=== PATIENT | female | born 1945 | race Caucasian/White ===

== ENCOUNTER 2022-08-16 18:07 | Emergency (ER) | payer MEDICARE, SELFPAY ==
[2022-08-16 18:18] VITALS: BP 145/74; PULSE 103; RESP 18; TEMP 37.8; O2SAT 96
[2022-08-16 19:24] LABS: Basophils Absolute Auto 0.1 K/mm3 (0.0-0.1); Basophils Percent Auto 0.5 % (0.2-1.2); Eosinophils Absolute Auto 0.1 K/mm3 (0-0.3); Eosinophils Percent Auto 0.8 % (0-4.4); Hematocrit 44.7 % (37.0-47.0); Hemoglobin 15.6 g/dL (12.0-15.0); Immature Granulocyte Absolute 0.04 K/mm3 (0.00-0.031); Immature Granulocyte Percent A 0.4 % (0-0.5); Lymphocytes Absolute Auto 1.81 K/mm3 (0.9-3.2); Lymphocytes Percent Auto 16.1 % (18.3-44.2); Mean Corpuscular HGB Conc 34.9 g/dl (32-36); Mean Corpuscular Hemoglobin 30.9 pg (26-34); Mean Corpuscular Volume 88.5 fl (80-100); Mean Platelet Volume 10.7 fl (7.4-10.4); Monocytes Percent Auto 9.1 % (2.6-8.5); Neutrophils Absolute Auto 8.2 K/mm3 (1.3-6.7); Neutrophils Percent Auto 73.1 % (45.5-73.1); Platelet Count Result 174 k/mm3 (150-375); Red Blood Count 5.05 M/mm3 (4.2-5.4); Red Cell Distribution Width 12.5 % (11.5-14.5); White Blood Count 11.3 K/mm3 (4.5-10.0)
[2022-08-16 19:35] LABS: Lactic Acid Reflex 1.5 mmol/L (0.7-2.0)
[2022-08-16 19:36] LABS: Anion Gap 13 mmol/L (8-16); Blood Urea Nitrogen 14 mg/dL (7-17); Carbon Dioxide 24 mmol/L (22-30); Chloride 99 mmol/L (98-107); Estimated CRCL calculation 42 ml/min; Estimated Glomerular Filt Rate > 60; Glucose 221 mg/dL (65-110); Potassium 3.1 mmol/L (3.4-5.0); Sodium 136 mmol/L (137-145)
--- NOTE | 2022-08-16 19:45 | ED.GENADULT ---
HPI - General Adult General Chief complaint: Urogenital-Female Stated complaint: uti symptoms, urgency Time Seen by Provider: 08/16/22 18:33 History of Present Illness HPI narrative: 77-year-old female with a history of presents to the emergency room for evaluation of urinary retention and generalized lower extremity weakness. Patient states when she gets UTIs she begins experiencing generalized lower extremity weakness. Patient also complaining of a fever. Reports body aches and headache. Denies any shortness of breath, difficulty breathing or cough. Denies any abdominal pain. Denies nausea vomiting, diarrhea or constipation Related Data Allergies Allergy/AdvReac Type Severity Reaction Status Date / Time cephalexin [From Keflex] Allergy Rash Verified 08/16/22 19:03 Penicillins Allergy Rash Verified 08/16/22 19:03 trimethoprim Allergy Rash Verified 08/16/22 19:03 Review of Systems Review of Systems: CONSTITUTIONAL: Denies fever, chills, or sweats. EYES: Denies visual changes, redness, or discharge. ENT: Denies rhinorrhea, congestion, sore throat, or otalgia. CARDIOVASCULAR: Denies chest pain, palpitations, or edema. RESPIRATORY: Denies cough or dyspnea. GASTROINTESTINAL: Denies abdominal pain, nausea, vomiting, or diarrhea. GENITOURINARY: Reports dysuria and urinary retention SKIN: Denies rash or itching. MUSCULOSKELETAL: Denies back pain, joint pain, or myalgia. NEUROLOGIC: Denies headache, numbness, dizziness, or weakness. PSYCHIATRIC: Denies anxiety or depression. Exam Narrative: GENERAL: Well-appearing, well-nourished, no physical limitations, and in no acute distress. HEAD: Normocephalic, atraumatic. EYES: Conjunctivae normal, PERRLA and EOMI. CHEST: Clear to auscultation. No respiratory distress. No wheezes rales or rhonchi. HEART: Regular rate and rhythm. No murmur heard. Normal peripheral pulses. ABDOMEN: Soft, suprapubic tenderness, nondistended, normal active bowel sounds. BACK: No CVA tenderness EXTREMITIES: Normal range of motion. No edema. No clubbing or cyanosis SKIN: Warm, dry, no rash. No noted wounds NEURO: No focal deficits. Alert and oriented x3. MAEW. CN's II-XI intact bilaterally, normal gait. PSYCH: Cooperative. Normal mood and affect. Course Vital Signs Vital signs: Vital Signs Temperature 37.8 C H 08/16/22 18:18 Pulse Rate 103 H 08/16/22 18:18 Respiratory Rate 18 08/16/22 18:18 Blood Pressure 145/74 H 08/16/22 18:18 Pulse Oximetry 96 08/16/22 18:18 Oxygen Delivery Room Air 08/16/22 18:18 Temperature 37.8 C H 08/16/22 18:18 Pulse Rate 103 H 08/16/22 18:18 Respiratory Rate 18 08/16/22 18:18 Blood Pressure 145/74 H 08/16/22 18:18 Pulse Oximetry 96 08/16/22 18:18 Oxygen Delivery Room Air 08/16/22 18:18 Medical Decision Making Vital Signs Vital Signs: Vital Signs Temperature 37.8 C H 08/16/22 18:18 Pulse Rate 103 H 08/16/22 18:18 Respiratory Rate 18 08/16/22 18:18 Blood Pressure 145/74 H 08/16/22 18:18 Pulse Oximetry 96 08/16/22 18:18 Oxygen Delivery Room Air 08/16/22 18:18 Temperature 37.8 C H 08/16/22 18:18 Pulse Rate 103 H 08/16/22 18:18 Respiratory Rate 18 08/16/22 18:18 Blood Pressure 145/74 H 08/16/22 18:18 Pulse Oximetry 96 08/16/22 18:18 Oxygen Delivery Room Air 08/16/22 18:18 Lab Data Result diagrams: 08/16/22 19:18 08/16/22 19:18 Labs: Lab Results 08/16/22 08/16/22 08/16/22 Range/Units 19:18 19:18 19:18 WBC 11.3 H (4.5-10.0) K/mm3 RBC 5.05 (4.2-5.4) M/mm3 Hgb 15.6 H (12.0-15.0) g/dL Hct 44.7 (37.0-47.0) % MCV 88.5 (80-100) fl MCH 30.9 (26-34) pg MCHC 34.9 (32-36) g/dl RDW 12.5 (11.5-14.5) % Plt Count 174 (150-375) k/mm3 MPV 10.7 H (7.4-10.4) fl Immature Gran % (Auto) 0.4 (0-0.5) % Neut % (Auto) 73.1 (45.5-73.1) % Lymph % (Auto) 16.1 L (18.3-44.2) % Glynn % (Auto) 9.1 H (2.6-8.5) %
[2022-08-16 20:08] LABS: Appearance Urine Clear (Clear); Bilirubin Urine Negative (Negative); Blood Urine Negative (Negative); Color Urine Yellow (Yellow); Glucose Urine UA 2+ mg/dL (Negative); Ketones Urine 2+ mg/dL (Negative); Leukocyte Esterase Ur 1+ LEU/UL (Negative); Nitrate Urine Positive (Negative); Protein Urine Trace mg/dL (Negative); Specific Grav Ur 1.015 (1.001-1.035); Urobilinogen Urine 0.2 mg/dL (<2.0); pH Urine 5.5 (5.0-9.0)
[2022-08-16 20:16] LABS: Add Urine Microscopic? YES; Bacteria Urine 2+ /hpf; Mucus Urine Rare /lpf; Squamous Epithelial Cell Urine Rare /hpf (Few); WBC Urine >75 /hpf
[2022-08-16] MEDS: CIPROFLOXACIN 400 MG/D5W 200ML 200 ML 200 MG IVPB (20:38)
[2022-08-16] MEDS: SODIUM CHLORIDE 0.9% IV 1,000 ML 999 ML IV CONT (20:38)
[2022-08-16 22:33] VITALS: BP 143/82; PULSE 85; RESP 18; O2SAT 99
== END 2022-08-16 22:05 | disposition home or self-care (01) ==
LOC: ANHED 20:55
PROVIDERS: Emergency Medicine; Emergency Provider Nurse Practitioner Family; PCP Family Medicine
DX: N39.0 Urinary tract infection, site not specified (principal)
CPT/HCPCS: 36415; 80048; 81001; 83605; 85025; 87077; 87086; 87186; 96365; 99285; J0744; J7030